=== PATIENT | female | born 1980 | race Caucasian/White ===

== ENCOUNTER → 2016-06-06 | Outpatient (CLI) | payer BC, OTHER ==
[~2016-06-06] MED LIST: IBUP-1050 PO
== END | disposition home or self-care (01) ==
LOC: C.RDSM 09:50
PROVIDERS: ATTEND Orthopaedic Surgery Sports Medicine
DX: R52 Pain, unspecified (principal)

== ENCOUNTER → 2016-06-11 | Outpatient (CLI) | payer BC ==
--- NOTE | 2016-06-11 17:41 | DIAGNOSTIC IMAGING REPORT ---
MRI LEFT KNEE NO CONTRAST CLINICAL HISTORY: Left knee pain. History of patellar subluxation. COMPARISON STUDY: Conventional radiographic study dated the 2016 FINDINGS: The patient was imaged in the sagittal, coronal, and axial planes. The quadriceps and patellar tendons appear intact. Anterior posterior cruciate ligaments appear intact. No meniscal tears are visualized. The medial and lateral collateral ligaments appear intact. There is an articular deformity involving the lateral femoral condyle, consistent with either an old fracture with secondary arthritis, or avascular necrosis. There is chronic fragmentation of the medial patella. 2 loose bodies are visualized posterior to the lateral aspect of the patella. These measure 11 mm and 9 mm respectively. IMPRESSION: 1. No evidence of cruciate or collateral ligament disruption. No evidence of meniscal tear 2. Chronic fragmentation of the medial patella 3. Deformity of the lateral femoral condyle, consistent with either an old fracture with secondary arthritis, or avascular necrosis 4. Loose bodies visualized posterior to the lateral aspect of the patella Electronically signed by: Steven Vitale M.D. 06/11/2016 5:39 PM Dictated Date/Time: 06/11/2016 5:33 PM
== END | disposition home or self-care (01) ==
LOC: C.MRIBC 16:39
PROVIDERS: ATTEND Orthopaedic Surgery Sports Medicine
DX: M25.569 Pain in unspecified knee (principal); M22.8X2 Other disorders of patella, left knee; M95.8 Other specified acquired deformities of musculoskeletal system; M23.42 Loose body in knee, left knee

== ENCOUNTER → 2016-06-30 | Day surgery (SDC) | payer BC ==
[2016-06-27 14:11] VITALS: Ht 170.2 cm; Wt 90.9 kg
[~2016-06-30] VITALS: Ht 170.2 cm; Wt 90.9 kg
[~2016-06-30] MED LIST changes: +ATROPINE SULFATE 0.1 MG/ML 5ML SYR IV PRN; +CEFAZOLIN 2000 MG/60 ML D5W IV SCH; +DEXAMETHASONE SOD INJ 4 MG/ML VIAL ONE; +EpHEDrine SULFATE INJ 50 MG/ML AMP IV PRN; +EpINEphrine INJ 1MG/ML AMP 1 MG/ML AMP ONE; +FENTANYL CITRATE INJ 50 MCG/1 ML 2 ML VIAL ONE; +LIDOCAINE HCL 2% 2 ML VIAL (20MG/ML) ONE; +METOCLOPRAMIDE HCL INJ 5 MG/ML 2 ML VIAL IV PRN; +MIDAZOLAM HCL 1 MG/ML 2ML VIAL ONE; +MoRPHine SULFATE 4 MG/ML 1 ML CARP\\VIAL IV PRN; +ONDANSETRON INJ 2 MG/ML 2 ML VIAL IV PRN; +ONDANSETRON INJ 2 MG/ML 2 ML VIAL ONE; +OXYCODONE/ACETAMINOPHEN 5-325 TAB PO PRN; +PROPOFOL IV EMULSION 10 MG/ML 20 ML VIAL IV ONE; +SODIUM CHLORIDE 0.9% 1000ML 1,000 ML IV SCH
--- NOTE | 2016-06-30 06:56 | History & Physical Bridge - [place] ---
H&P Re-Evaluation Bridge Note: I have examined the patient, reviewed the History & Physical and in the interval since the performance of the History & Physical I have noted the following changes of clinical significance: No changes noted
[2016-06-30] MEDS: LACTATED RINGER'S 1000ML 1,000 ML IV SCH ×2 (07:15→09:57)
[2016-06-30] MEDS: LIDOCAINE HCL 1% 20 ML VIAL ONE ×2 (08:12→08:35)
[2016-06-30] MEDS: BUPIVACAINE/EPINEPHRINE 0.5% MPF 1:200,000 30 ML VIAL ONE ×2 (08:12→08:35)
--- NOTE | 2016-06-30 09:09 | Discharge Instructions-SurgCtr ---
Discharge Instructions Visit Reason for Visit: Left Knee Loose Bodies, Chondromalacia Discharge Discharge Diagnosis / Problem: S/P Left knee arthroscopy, loose body removal, partial medial meniscectomy Discharge Goals Goal(s): Decrease discomfort, Improve function, Increase independence Activity Recommendations Activity Limitations: as noted below Lifting Limitations: gradually increase as tolerated Exercise/Sports Limitations: gradually increase as tolerated May Resume Sexual Activity: when tolerated Shower/Bathe: keep incision dry Driving or Machine Use: Weightbearing Status: Left weightbearing (as tolerated) Anesthesia . Post Anesthesia Instructions: If you have had General Anesthesia or IV Sedation: * Do not drive today. * Resume driving when surgeon permits. * Do not make important decisions or sign legal documents today. * Call surgeon for: 1. Temperature elevations greater than 101 degrees F. 2. Uncontrollable pain. 3. Excessive bleeding. 4. Persistent nausea and vomiting. 5. Medication intolerance (nausea, vomiting or rash). * For nausea and vomiting use only clear liquids such as: tea, soda, bouillon until nausea subsides, then gradually increase diet as tolerated. * If you have any concerns or questions, call your surgeon's office. If physician is unavailable and it is an emergency, call 911 or go to the nearest emergency room. . Instructions / Follow-Up Instructions / Follow-Up DIET: * Resume previous diet. MEDICATIONS: * Please take your prescriptions as instructed at your pre-op appointment and/ or see medication discharge instructions listed above. * If concerns develop, call your physician's office at . SPECIAL CARE INSTRUCTIONS: * Ice/Elevate as instructed. * Keep dressing clean, dry, intact. * Your surgical extremity may be discolored due to prepping agents used on the skin. A bluish-green tint is a normal variant and should not cause alarm. Call your doctor at [phone] if: * Temperature above 101 degrees * Pain not relieved by pain medicine ordered * There is increased drainage or redness from any incision * You have any unanswered questions, problems or concerns. FOLLOW UP VISIT: * If not already scheduled, please call the office at to schedule a follow-up appointment. Diet Recommendations Home Diet: resume previous diet Procedures Procedures Performed: Left Knee Arthroscopy, Loose Body Removal, partial medial meniscectomy, Exam Under Anesthesia Pending Studies Studies pending at discharge: yes List of pending studies: loose body left knee Medical Emergencies . Who to Call and When: Medical Emergencies: If at any time you feel your situation is an emergency, please call 911 immediately. . Non-Emergent Contact Non-Emergency issues call your: Primary Care Provider . . "Provider Documentation" section prepared by [place]. [place] Drug Monitoring Program Search Results: no issues identified
--- NOTE | 2016-06-30 09:12 | [facility] Post Operative Brief Note ---
Immediate Operative Summary Operative Date Jun 30, 2016. Pre-Operative Diagnosis Left Knee Pain, loose body Post-Operative Diagnosis Same + medial meniscus tear, chondromalacia Procedure(s) Performed Left Knee Arthroscopy, Loose Body Removal, partial medial meniscectomy, chondroplasty, Exam Under Anesthesia Surgeon Dr. Mattson Ambulance Attendant Surgeon(s) Dr. Small Estimated Blood Loss 2 Findings same Specimens A. Left Knee Loose Body Drains none Anesthesia general Complication(s) None Disposition Recovery Room / PACU
--- NOTE | 2016-06-30 09:24 | [facility] Operative Report ---
Operative Report Operative Date Jun 30, 2016. Pre-Operative Diagnosis Left Knee Pain, loose body Post-Operative Diagnosis Same + medial meniscus tear, chondromalacia Procedure(s) Performed 1) Left Knee Arthroscopy chondroplasty. 2) Loose Body Removal. 3) Partial medial meniscectomy. 4) Exam Under Anesthesia. Surgeon Dr. Mattson C[employer] Field Service Engineer Surgeon(s) Dr. Small Estimated Blood Loss 2 Findings The left knee was examined under anesthesia. Range of motion was 0-135. Ligamentous examination exhibited: stable Yves, posterior drawer, varus and valgus stress at 0 & 30 degrees. ARTHROSCOPIC FINDINGS: Multiple small loose bodies were evacuated with yellow clear synovial fluid upon entering the joint. 1) PATELLOFEMORAL JOINT: The articular cartilage of the Patella had some Outerbridge type II changes about the medial patellar facet distally and Trochlea articular cartilage was intact. 2) GUTTERS: Large loose body in the lateral gutter. 3) MEDIAL COMPARTMENT: The articular cartilage of the femur and Tibia was intact. The medial meniscus had degenerative tear at the posterior horn of the medial meniscus. 4) ACL/PCL: They were both visualized and probed to be intact. 5) LATERAL COMPARTMENT: The lateral compartment was then entered in a figure-of- four position. The tibial articular cartilage was normal. Along the most lateral aspect of the femoral condyle within the flexed from 85 to full extension area of fibrocartilage, with some fraying at the most proximal edge, otherwise stable margins. The lateral meniscus was normal. Specimens A. Left Knee Loose Body Drains n/a Anesthesia LMA Complication(s) None Disposition Recovery Room / PACU (Stable) Implants n/a Indications This is a 35-year-old female who has clinical and MRI findings consistent with loose body and chondromalacia. I recommended that a left knee arthroscopy be performed with meniscus repair vs debridement, possible chondroplasty versus microfracture. The patient understands the risks of surgery, which include but not limited to: bleeding, infection, re-operation, damage to nerves and arteries , continued knee pain, progression of OA, DVT, and a 2-5% risk of becoming worse after surgery. The patient understands all of these instructions and explanations, all of his questions have been satisfactorily addressed and the patient has elected to proceed. Informed consent was signed. Description of Procedure The patient was taken to the Operating Room and placed in the supine position after general anesthetic was administered. My initials and a multidisciplinary time-out were used to identify the left leg as the correct operative limb. Prior to the incision, 2 grams of intravenous Ancef was given. The left knee was then injected with 20cc of a 50:50 mix of 1% Lidocaine plain and 0.5% Bupivacaine with epinephrine in a sterile fashion using the superolateral portal. The left leg was then prepped and draped in a standard sterile fashion. The anterolateral, anteromedial, and superolateral portals were injected with the 50:50 mixture noted above, for a total of 10cc, in the standard fashion. An anterolateral arthroscopic portal was established with an 11-blade. Next, the arthroscope was introduced into the knee. A diagnostic arthroscopy commenced and both the superolateral and anteromedial portals were established under direct visualization using a spinal needle followed by an 11 blade in the standard fashion. The above findings were observed during the diagnostic arthroscopy. The anterior fat pad were debrided as they were encounter with mechanical shaver and [place]. The articular cartilage damage of the patella and lateral femoral condyle were debrided back to stable margins as they were encountered with mechanical shaver. The medial meniscus tear was evaluated and found to be irreparable and was debrided back to stable margin with mechanical shaver. The loose body was removed. A grasper and the superior lateral portal after securing it in place with a spinal needle. The knee was copiously irrigated. The arthroscopic instruments were then removed. The portals were closed with 3-0 Prolene in a standard fashion. The wound was dressed with Xeroform gauze, sterile gauze, ABDs, sterile Webril, and a foot to thigh Jg bandage. The patient was then transferred to the Recovery Room in stable condition. The sponge and needle counts were correct. Post-op Instructions: The patient will be WBAT. The patient may remove the operative dressing on Post -Op Day #2 and apply Band-Aids to the wounds. The patient may shower in 72 hours and is to wear the MARION for 2 weeks on the operative limb. The patient is to use the pain medicine as needed and take the ASA for 2 weeks. The patient was also given a handout for home quad strengthening and seated self-assisted ROM exercises, which they may begin tomorrow. The patient was given a prescription for PT and is scheduled for an appointment later this week. The patient is to follow up with me in 10-15 days. I attest to the content of the Intraoperative Record and any orders documented therein. Any exceptions are noted below.
--- NOTE | 2016-06-30 09:41 | Anesthesia Progress Nt - [facility] ---
Anesthesia Post Op Note Date & Time Jun 30, 2016 at 09:42 Vital Signs Pain Intensity: 1 Vital Signs Past 12 Hours Date Time Temp Pulse Resp B/P Pulse Ox O2 Delivery O2 Flow Rate FiO2 06/30/16 09:32 36.7 92 16 130/78 100 Mask 6 06/30/16 06:54 36.7 80 16 122/87 100 Room Air Notes Mental Status: alert / awake / arousable, participated in evaluation Pt Amnestic to Procedure: Yes Nausea / Vomiting: adequately controlled Pain: adequately controlled Airway Patency, RR, SpO2: stable & adequate BP & HR: stable & adequate Hydration State: stable & adequate Anesthetic Complications: no major complications apparent
[2016-06-30] MEDS: FENTANYL CITRATE INJ 50 MCG/1 ML 2 ML VIAL IV PRN ×2 (09:42→10:05)
[2016-06-30 10:28] VITALS: TEMP 36.8
[2016-06-30 10:56] VITALS: BP 122/76; PULSE 72; O2SAT 100
--- NOTE | 2016-06-30 13:24 | [facility] Post Operative Brief Note ---
Immediate Operative Summary Operative Date Jun 30, 2016. Pre-Operative Diagnosis Left Knee Pain, loose body Post-Operative Diagnosis Same + medial meniscus tear, chondromalacia Procedure(s) Performed 1) Left Knee Arthroscopy chondroplasty. 2) Loose Body Removal. 3) Partial medial meniscectomy. 4) Exam Under Anesthesia. Surgeon Dr. Mattson Manufacturing Engineering Professor Surgeon(s) Dr. Small Estimated Blood Loss 2 Specimens A. Left Knee Loose Body Complication(s) None Disposition PCU
== END | disposition home or self-care (01) ==
LOC: X.SURG 06:45
PROVIDERS: ATTEND Orthopaedic Surgery Sports Medicine
DX: M23.42 Loose body in knee, left knee (principal); M94.262 Chondromalacia, left knee; M25.562 Pain in left knee